=== PATIENT | male | born 1990 | race Caucasian/White ===

== ENCOUNTER 2024-01-24 17:42 | Inpatient (IN) | payer MEDICAID ==
[~2024-01-24] VITALS: Ht 188 cm; Wt 68.2 kg
[2024-01-24] MEDS: methylPREDNISolone sod succ 125mg/2ml vial IV ONE (18:29)
[2024-01-24] MEDS: normal saline 1000ML IV soln IVB ONE (18:32)
[2024-01-24] MEDS: albuterol 2.5 MG/3 ML nebule CONTNEB PRN (18:35)
[2024-01-24 18:41] VITALS: PULSE 122; RESP 25; O2SAT 93
[2024-01-24 18:53] LABS: BASOPHILS # (AUTO) 0.1 X10'3 (0-0.2); BASOPHILS % (AUTO) 0.9 % (0-1); EOSINOPHILS # (AUTO) 0.7 X10'3 (0-0.9); EOSINOPHILS % (AUTO) 5.9 % (0-6); HEMATOCRIT 46.2 % (42.0-52.0); HEMOGLOBIN 15.4 g/dl (14.0-17.9); LYMPHOCYTES % (AUTO) 9.4 % (21-51); MEAN CORPUSCULAR HEMOGLOBIN 27.9 PG (27.0-31.0); MEAN CORPUSCULAR HGB CONC 33.4 g/dL (33.0-36.5); MEAN CORPUSCULAR VOLUME 83.6 FL (78-98); MEAN PLATELET VOLUME 7.7 FL (7.4-10.4); MONOCYTES # (AUTO) 0.7 X10'3 (0-0.9); MONOCYTES % (AUTO) 6.7 % (2-12); NEUTROPHILS # (AUTO) 8.6 X10'3 (1.8-7.7); NEUTROPHILS % (AUTO) 77.1 % (42-75); PLATELET COUNT 272 X10'3 (140-440); RED BLOOD COUNT 5.53 X10'6 (4.70-6.10); RED CELL DISTRIBUTION WIDTH 13.2 % (11.5-14.5); WHITE BLOOD COUNT 11.1 X10'3 (4.5-11.0)
[2024-01-24 19:05] LABS: ALBUMIN 3.7 G/DL (3.4-5.0); ANION GAP 7 (8-16); BLOOD UREA NITROGEN 16 MG/DL (7-18); CALCIUM 9.1 MG/DL (8.5-10.1); CHLORIDE 101 MMOL/L (99-107); CREATININE 0.84 MG/DL (0.60-1.10); GLUCOSE 106 MG/DL (70-104); POTASSIUM 4.3 MMOL/L (3.5-5.1); SODIUM 139 MMOL/L (135-145); TOTAL CARBON DIOXIDE 30.9 MMOL/L (24-32); eCRCL 121 ML/MIN; eGFR > 90 ML/MIN
[2024-01-24] MEDS: magnesium 2GM in 50ml NS 50 ML IV ONE (19:38)
[2024-01-24 19:46] VITALS: PULSE 130; RESP 20; O2SAT 99
[2024-01-24 21:47] LABS: URINE AMPHETAMINE SCREEN POSITIVE (Neg); URINE BARBITUATE SCREEN NEGATIVE (Neg); URINE BENZODIAZEPINES SCREEN NEGATIVE (Neg); URINE CANNABINOID SCREEN NEGATIVE (Neg); URINE COCAINE SCREEN NEGATIVE (Neg); URINE METHADONE SCREEN NEGATIVE (Neg); URINE OPIATE SCREEN NEGATIVE (Neg); URINE PHENCYCLIDINE SCREEN NEGATIVE (Neg)
[2024-01-24] MEDS ORDERED: magnesium 4gm in 100ml NS 100 ML IV PRN (22:25)
[2024-01-24] MEDS ORDERED: potassium Cl 20 mEq SR tablet PO PRN ×2 (22:25)
[2024-01-24] MEDS ORDERED: mag hydrox/Alum hydrox/simeth 30ml oral suspension PO PRN (22:25)
[2024-01-24] MEDS ORDERED: magnesium 2GM in 50ml NS 50 ML IV PRN (22:25)
[2024-01-24] MEDS ORDERED: potassium Cl 40MEQ/1/2NS 520ml 520 ML IV PRN (22:25)
[2024-01-24] MEDS ORDERED: acetaminophen 325mg tablet PO PRN (22:25)
[2024-01-24] MEDS ORDERED: magnesium hydroxide 30ml (MOM) UD suspension PO PRN (22:25)
[2024-01-24] MEDS ORDERED: ondansetron/PF 4mg/2ml inj IV PRN (22:25)
[2024-01-24] MEDS ORDERED: magnesium Cl slow-release 64mg tablet PO PRN (22:25)
[2024-01-24] MEDS: ipratropium/albuterol 3ml nebule NEB SCH (23:15)
[2024-01-24 23:16] VITALS: PULSE 121; RESP 22; O2SAT 93
[2024-01-25] VITALS (17 sets, daily range): BP systolic 121–128; BP diastolic 72–82; PULSE 104–125; RESP 16–20; TEMP 97.2–98.8; O2SAT 92–98
[2024-01-25] MEDS: methylPREDNISolone sod succ/PF 40mg inj. IV SCH (02:17)
[2024-01-25] MEDS: benzonatate 100mg capsule PO SCH (02:17)
[2024-01-25] MEDS: docusate sod 100mg capsule PO SCH (08:00)
[2024-01-25] MEDS: K and/or MAG REPLACEMENT MC SCH (08:00)
[2024-01-25] MEDS ORDERED: albuterol 2.5 MG/3 ML nebule NEB PRN (08:45)
[2024-01-25 08:55] LABS: BASOPHILS % (AUTO) 0.5 % (0-1); EOSINOPHILS % (AUTO) 0 % (0-6); HEMATOCRIT 44.8 % (42.0-52.0); HEMOGLOBIN 15.1 g/dl (14.0-17.9); LYMPHOCYTES # (AUTO) 0.7 X10'3 (1.1-4.8); LYMPHOCYTES % (AUTO) 8.5 % (21-51); MEAN CORPUSCULAR HGB CONC 33.6 g/dL (33.0-36.5); MEAN CORPUSCULAR VOLUME 83.3 FL (78-98); MEAN PLATELET VOLUME 7.5 FL (7.4-10.4); MONOCYTES # (AUTO) 0.2 X10'3 (0-0.9); MONOCYTES % (AUTO) 2.8 % (2-12); NEUTROPHILS # (AUTO) 7.6 X10'3 (1.8-7.7); NEUTROPHILS % (AUTO) 88.2 % (42-75); PLATELET COUNT 264 X10'3 (140-440); RED BLOOD COUNT 5.38 X10'6 (4.70-6.10); RED CELL DISTRIBUTION WIDTH 13.6 % (11.5-14.5); WHITE BLOOD COUNT 8.6 X10'3 (4.5-11.0)
[2024-01-25 09:33] LABS: ALANINE AMINOTRANSFERASE 25 U/L (12-78); ALBUMIN 3.4 G/DL (3.4-5.0); ALKALINE PHOSPHATASE 69 IU/L (46-116); ANION GAP 6 (8-16); ASPARTATE AMINO TRANSFERASE 18 U/L (10-37); BILIRUBIN,TOTAL 0.4 MG/DL (0.1-1.0); BLOOD UREA NITROGEN 11 MG/DL (7-18); BUN/CREATININE RATIO 15.1 (10.0-20.0); CALCIUM 8.7 MG/DL (8.5-10.1); CHLORIDE 101 MMOL/L (99-107); CREATININE 0.73 MG/DL (0.60-1.10); GLUCOSE 125 MG/DL (70-104); POTASSIUM 4.1 MMOL/L (3.5-5.1); SODIUM 135 MMOL/L (135-145); TOTAL PROTEIN 6.9 G/DL (6.4-8.2); eCRCL 139 ML/MIN; eGFR > 90 ML/MIN
[2024-01-25] MEDS ORDERED: LORazepam 1 MG tablet PO PRN (14:05)
[2024-01-25] MEDS: DOXYCYCLINE 100MG CAPSULE PO SCH (17:39)
[2024-01-26] VITALS (8 sets, daily range): BP systolic 123–138; BP diastolic 76–83; PULSE 65–120; RESP 15–20; TEMP 98–99; O2SAT 90–96
[2024-01-26 06:24] LABS: BASOPHILS % (AUTO) 0.2 % (0-1); EOSINOPHILS % (AUTO) 0 % (0-6); HEMOGLOBIN 15.5 g/dl (14.0-17.9); LYMPHOCYTES # (AUTO) 0.7 X10'3 (1.1-4.8); LYMPHOCYTES % (AUTO) 4.6 % (21-51); MEAN CORPUSCULAR HEMOGLOBIN 27.3 PG (27.0-31.0); MEAN CORPUSCULAR HGB CONC 32.4 g/dL (33.0-36.5); MEAN CORPUSCULAR VOLUME 84.2 FL (78-98); MEAN PLATELET VOLUME 8.1 FL (7.4-10.4); MONOCYTES # (AUTO) 0.3 X10'3 (0-0.9); MONOCYTES % (AUTO) 1.9 % (2-12); NEUTROPHILS # (AUTO) 14.7 X10'3 (1.8-7.7); NEUTROPHILS % (AUTO) 93.3 % (42-75); PLATELET COUNT 290 X10'3 (140-440); RED CELL DISTRIBUTION WIDTH 13.6 % (11.5-14.5); WHITE BLOOD COUNT 15.8 X10'3 (4.5-11.0)
[2024-01-26 06:32] LABS: ALANINE AMINOTRANSFERASE 26 U/L (12-78); ALBUMIN 3.4 G/DL (3.4-5.0); ALKALINE PHOSPHATASE 66 IU/L (46-116); ANION GAP 8 (8-16); ASPARTATE AMINO TRANSFERASE 21 U/L (10-37); BILIRUBIN,TOTAL 0.4 MG/DL (0.1-1.0); BLOOD UREA NITROGEN 17 MG/DL (7-18); BUN/CREATININE RATIO 21.3 (10.0-20.0); CALCIUM 8.8 MG/DL (8.5-10.1); CHLORIDE 100 MMOL/L (99-107); GLUCOSE 132 MG/DL (70-104); MAGNESIUM 2.2 MG/DL (1.5-2.4); PHOSPHORUS 4.1 MG/DL (2.3-4.5); POTASSIUM 4.1 MMOL/L (3.5-5.1); SODIUM 134 MMOL/L (135-145); TOTAL CARBON DIOXIDE 26.2 MMOL/L (24-32); TOTAL PROTEIN 6.9 G/DL (6.4-8.2); eCRCL 127 ML/MIN; eGFR > 90 ML/MIN
[2024-01-26] MEDS ORDERED: IPRA4AER IH (10:55)
[2024-01-26] MEDS ORDERED: PRED20TA PO (10:55)
[2024-01-26] MEDS ORDERED: DOXY-224 PO (10:55)
[2024-01-26] MEDS ORDERED: NALO4SPR BOTHNARES (10:55)
[2024-01-26] MEDS ORDERED: ALBU8HFA INH (10:55)
== END 2024-01-26 12:43 | disposition home or self-care (01) | DRG 140 ==
LOC: ER 17:43 → ED HOLD 22:26 → UNDOADMOB 22:26 → OBSVTOIN 01-25 04:23 → INTOOBSV 01-25 04:23 → ED HOLD 01-25 04:23 → EDBEDREQ 01-25 06:41 → SUR 3N 01-25 07:35
PROVIDERS: ADMIT Internal Medicine; ATTEND Family Medicine
DX: J44.1 Chronic obstructive pulmonary disease with (acute) exacerbation (principal); J96.01 Acute respiratory failure with hypoxia; F17.200 Nicotine dependence, unspecified, uncomplicated; F15.10 Other stimulant abuse, uncomplicated; F11.10 Opioid abuse, uncomplicated; R00.0 Tachycardia, unspecified; D72.829 Elevated white blood cell count, unspecified; Z20.822 Contact with and (suspected) exposure to COVID-19
CPT/HCPCS: 36415; 71045; 80048; 80053; 80305; 83605; 83735; 84100; 84484; 85025; 87040; 87081; 87502; 87503; 87811; 93005; 94640; 94760; 96365; 96375; 99291; A7015; G0378; J2920; J2930; J3475; J7030

== ENCOUNTER 2024-03-26 22:59 | Emergency (ER) | payer MEDICAID ==
[~2024-03-26] VITALS: Ht 182.9 cm; Wt 70.5 kg
[~2024-03-26 22:59] MED LIST: ALBU8HFA INH; DOXY-224 PO; IPRA4AER IH; NALO4SPR BOTHNARES; PRED20TA PO
[2024-03-26] MEDS: ipratropium/albuterol 3ml nebule NEB STA (23:54)
[2024-03-27] VITALS: PULSE 118; RESP 16; O2SAT 94
[2024-03-27 00:06] VITALS: PULSE 121; RESP 16; O2SAT 97
[2024-03-27 00:15] LABS: LYMPHOCYTES # (AUTO) 1.1 X10'3 (1.1-4.8); MEAN CORPUSCULAR VOLUME 83.4 FL (78-98); MEAN PLATELET VOLUME 7.9 FL (7.4-10.4)
[2024-03-27 00:20] LABS: BASOPHILS # (AUTO) 0.1 X10'3 (0-0.2); BASOPHILS % (AUTO) 1.2 % (0-1); EOSINOPHILS # (AUTO) 0.7 X10'3 (0-0.9); EOSINOPHILS % (AUTO) 7.3 % (0-6); HEMATOCRIT 47.9 % (42.0-52.0); HEMOGLOBIN 16.2 g/dl (14.0-17.9); MEAN CORPUSCULAR HEMOGLOBIN 28.1 PG (27.0-31.0); MEAN CORPUSCULAR HGB CONC 33.7 g/dL (33.0-36.5); MONOCYTES # (AUTO) 0.6 X10'3 (0-0.9); MONOCYTES % (AUTO) 5.4 % (2-12); NEUTROPHILS # (AUTO) 7.7 X10'3 (1.8-7.7); NEUTROPHILS % (AUTO) 75.1 % (42-75); PLATELET COUNT 333 X10'3 (140-440); RED BLOOD COUNT 5.74 X10'6 (4.70-6.10); RED CELL DISTRIBUTION WIDTH 14.1 % (11.5-14.5); WHITE BLOOD COUNT 10.2 X10'3 (4.5-11.0)
[2024-03-27 00:25] LABS: ALANINE AMINOTRANSFERASE 30 U/L (12-78); ALBUMIN 4.1 G/DL (3.4-5.0); ALBUMIN/GLOBULIN RATIO 1.1 (1.1-1.5); ALKALINE PHOSPHATASE 70 IU/L (46-116); ANION GAP 3 (8-16); ASPARTATE AMINO TRANSFERASE 26 U/L (10-37); BILIRUBIN,TOTAL 0.4 MG/DL (0.1-1.0); BLOOD UREA NITROGEN 16 MG/DL (7-18); BUN/CREATININE RATIO 17.2 (10.0-20.0); CALCIUM 9.5 MG/DL (8.5-10.1); CHLORIDE 100 MMOL/L (99-107); CREATININE 0.93 MG/DL (0.60-1.10); GLUCOSE 131 MG/DL (70-104); POTASSIUM 4.3 MMOL/L (3.5-5.1); SODIUM 137 MMOL/L (135-145); TOTAL CARBON DIOXIDE 33.7 MMOL/L (24-32); eCRCL 113 ML/MIN; eGFR > 90 ML/MIN
[2024-03-27] MEDS: ipratropium/albuterol 3ml nebule NEB STA ×2 (00:29)
[2024-03-27 00:33] LABS: PRO BRAIN NATRIURETIC PEPTIDE 306 PG/ML (0-125)
[2024-03-27] MEDS ORDERED: ADV50250 INH (00:35)
[2024-03-27] MEDS ORDERED: ALBU8HFA INH (00:35)
[2024-03-27] MEDS ORDERED: PRED20TA PO (00:36)
[2024-03-27] MEDS: dexamethasone sod phosphate 10mg/ml inj IV STA (00:51)
[2024-03-27] MEDS: budesonide 0.5mg/2ml UD nebule IH SCH (01:06)
[2024-03-27 01:10] VITALS: PULSE 120; RESP 16; O2SAT 95
[2024-03-27 01:14] VITALS: PULSE 124; RESP 16; O2SAT 97
[2024-03-27 03:16] VITALS: BP 134/85; PULSE 133; RESP 20; TEMP 97.3; O2SAT 93
== END 2024-03-27 03:18 | disposition home or self-care (01) ==
LOC: ER 23:02
DX: J45.901 Unspecified asthma with (acute) exacerbation (principal); Z79.2 Long term (current) use of antibiotics; Z79.899 Other long term (current) drug therapy
CPT/HCPCS: 36415; 71045; 80053; 83605; 83880; 84145; 84484; 85025; 87040; 93005; 94640; 96374; 99285; J1100; J7060; 94760